=== PATIENT | female | born 1945 | race Caucasian/White ===

== ENCOUNTER 2016-12-02 10:49 | Emergency (ER) | payer MEDICARE, OTHER ==
[2016-12-02] MEDS ORDERED: KETOROLAC TROMETHAMINE 30 MG/ML VIAL ONE (11:21)
[2016-12-02] MEDS ORDERED: ONDANSETRON HCL 4 MG/2 ML VIAL ONE (11:21)
[2016-12-02 11:43] LABS: BLOOD UREA NITROGEN 11 mg/dL (7-17); CALCIUM 9.7 mg/dL (8.4-10.2); CHLORIDE 94 mmol/L (98-107); EST GLOMERULAR FILTRATION RATE > 60 mL/min; GLUCOSE 153 mg/dL (70-100); POTASSIUM 3.5 mmol/L (3.5-5.1); SODIUM 130 mmol/L (137-145)
[2016-12-02 11:47] LABS: BASOPHILS 0.3 % (0.0-2.0); EOSINOPHILS 0.7 % (0.0-6.0); HEMATOCRIT 39.1 % (36.0-48.0); HEMOGLOBIN 13.6 g/dL (12.0-16.0); LYMPHOCYTES# 0.8 X 10^3uL (0.8-3.8); MEAN CORPUS. HGB CONCENTRATION 34.7 g/dL (32.0-36.0); MEAN CORPUSCULAR HEMOGLOBIN 35.1 pg (29.0-35.0); MONOCYTES 2.4 % (2.0-10.0); MONOCYTES# 0.1 X 10^3uL (0.2-1.0); NEUTROPHILS 80.9 % (54.0-75.0); PLATELET COUNT 293 X 10^3uL (130-440); RED BLOOD COUNT 3.87 X 10^6uL (4.20-6.10); RED CELL DISTRIBUTION WIDTH 11.6 % (11.5-14.5)
[2016-12-02 11:49] LABS: LYMPHOCYTES 15.7 % (20.0-40.0)
--- NOTE | 2016-12-02 13:19 | ER PHYSICIAN DOCUMENTATION ---
Physician Documentation [facility] Name:Iva Schreiber Age:71 yrs Sex:Female :1945 Arrival Date:12/02/2016 Time:10:49 Bed1 Private MD: Earnest Adkins Disposition: 12/02/16 13:08 Discharged to Home/Self Care. Impression: Dehydration, Acute Headache. - Condition is Good. - Discharge Instructions: DEHYDRATION (7y-Adult), HEADACHE, Unspecified. - Prescriptions for Zofran 4 mg Oral Tablet - take 1 tablet by ORAL route every 12 hours .; 20 tablet. - Medical Reconciliation form form. - Follow up: Private Physician; When: As needed; Reason: Worsening of condition. - Problem is new. - Symptoms have improved. HPI: 12/02 12:10 This 71 yrs old Female presents to ER via Private Vehicle with complaints of sc Nausea/Vomiting/Diarrhea. 12:10 The patient presents to the emergency department with nausea, with vomiting, 10 times sc since last night, without any complaints of abdominal pain. Onset: The symptom(s)/episode began/occurred last night. Possible causes: travel. Associated signs and symptoms: Pertinent positives: diarrhea, headache. Severity of symptoms: At their worst the symptoms were moderate. Historical: - Allergies: No known drug Allergies; - Home Meds: 1. None - PMHx: None; - PSHx: BUNIONECTOMY; - Tetanus: < 10 years. - Ebola Screening: : Patient negative for fever greater than or equal to 101.5 degrees Fahrenheit, and additional compatible Ebola Virus Disease symptoms. - Immunization history: Flu Vaccine < 1 year. - Social history: Smoking status: Patient states was never smoker of tobacco. ROS: 12:10 Constitutional: Negative for fever, chills, and weight loss. sc Eyes: Negative for injury, pain, redness, and discharge. ENT: Negative for injury, pain, and discharge. Neck: Negative for injury, pain, and swelling. Cardiovascular: Negative for chest pain, palpitations, and edema. Respiratory: Negative for shortness of breath, cough, wheezing, and pleuritic chest pain. Back: Negative for injury and pain. MS/Extremity: Negative for injury and deformity. Skin: Negative for injury, rash, and discoloration. 12:10 Neuro: Negative for headache, weakness, numbness, tingling, and seizure. sc 12:10 Abdomen/GI: Positive for nausea, vomiting, diarrhea. Exam: Constitutional: This is a well developed, well nourished patient who is awake, alert, and in no acute distress. Head/Face: Normocephalic, atraumatic. Eyes: Pupils equal round and reactive to light, extra-ocular motions intact. Lids and lashes normal. Conjunctiva and sclera are non-icteric and not injected. Cornea within normal limits. Periorbital areas with no swelling, redness, or edema. ENT: Nares patent. No nasal discharge, no septal abnormalities noted. Tympanic membranes are normal and external auditory canals are clear. Oropharynx with no redness, swelling, or masses, exudates, or evidence of obstruction, uvula midline. Mucous membranes moist. Neck: Trachea midline, no thyromegaly or masses palpated, and no cervical lymphadenopathy. Supple, full range of motion without nuchal rigidity, or vertebral point tenderness. No meningismus. Cardiovascular: Regular rate and rhythm with a normal S1 and S2. No gallops, murmurs, or rubs. Normal PMI, no JVD. No pulse deficits. Respiratory: Lungs have equal breath sounds bilaterally, clear to auscultation and percussion. No rales, rhonchi or wheezes noted. No increased work of breathing, no retractions or nasal flaring. 12:11 Back: No spinal tenderness. No costovertebral tenderness. Full range of motion. sc 12:11 Constitutional: The patient appears in no acute distress, alert, awake, comfortable. 12:11 ENT: Mouth: Oral mucosa: dry. 12:11 Cardiovascular: Rate: normal, Rhythm: regular. 12:11 Abdomen/GI: Inspection: abdomen appears normal, distension, is not seen, Bowel sounds: normal, Palpation: abdomen is soft and non-tender. 12:11 Skin: Turgor: is poor. Vital Signs: 10:56 BP 162 / 94; Pulse 75; Resp 16; Temp 98.3(O); Pulse Ox 96% on R/A; Weight 48.08 kg (R); arc Height 5 ft. 2 in. (157.48 cm) (R); Pain 0/10; 10:56 Body Mass Index 19.39 (48.08 kg, 157.48 cm) arc MDM: 10:53 Patient medically screened. id 12:11 Differential diagnosis: Nonspecific abd pain, viral gastroenteritis, gastroenteritis. id Data reviewed: vital signs, nurses notes, lab test result(s), and as a result, I will continue to observe the patient, administer IV fluids. Counseling: I had a detailed discussion with the patient and/or guardian regarding: the historical points, exam findings, and any diagnostic results supporting the discharge/admit diagnosis, lab results, the need for outpatient follow up, to return to the emergency department if symptoms worsen or persist or if there are any questions or concerns that arise at home. 12/02 11:44 Order name: BASIC METABOLIC PANEL; Complete Time: 11:50 EDMS 12/02 11:50 Interpretation: Abnormal: SODIUM 130. id 12/02 11:49 Order name: CBC AUTO DIF, MDIF/RMOR IF IND; Complete Time: 11:50 EDID 12/02 11:50 Interpretation: Normal. id 12/02 11:00 Order name: Urine Dip; Complete Time: 12:24 id Dispensed Medications: 11:11 Drug: Toradol 15 mg; Route: IVP; Site: left antecubital; 12:24 Follow up: Response: Pain is decreased 11:11 Drug: Zofran 4 mg; Route: IVP; Infused Over: 2 mins; Site: left antecubital; rh 12:24 Follow up: Response: Nausea is decreased 11:12 Drug: NS 0.9% 1000 ml; Route: IV; Rate: 100 ml/hr; Site: left antecubital; rh 12:15 Follow up: IV Status: Completed infusion; IV Intake: 1000ml Point of Care Testing: Urine Dip: 12:27 pH: 8.0; ; Specific [place]: 1.020; Ketones: Trace; Glucose: Negative; Protein: arc Negative; Leukocytes: Negative; Nitrite: Negative ; Blood: Non Hemolyzed Trace; Bilirubin: Negative ; Urobilinogen: Normal Signatures: Earnest Walden MD MD sc Hofsess, Rachel
--- NOTE | 2016-12-02 13:19 | ER NURSING DOCUMENTATION ---
Nurse's Notes [facility] Name:Iva Schreiber Age:71 yrs Sex:Female :1945 Arrival Date:12/02/2016 Time:10:49 Bed1 Private MD: Diagnosis:Dehydration;Acute Headache Presentation: 12/02 10:51 Acuity: MABEL 3 rh 11:00 Presenting complaint: Patient states: Pt arrived yesterday from [place], she rh developed at headache last night around 0100 and has vomited 8-10 times since, has been nauseated and feels weak. Transition of care: Home. 11:00 Method Of Arrival: Private Vehicle rh Triage Assessment: 11:01 General: Appears in no apparent distress, Behavior is cooperative. Pain: Complains of rh pain in HEADACHE. EENT: Oral mucosa is dry. Neuro: Level of Consciousness is awake, alert, obeys commands, Oriented to person, place, time, event, Reports headache. Cardiovascular: Capillary refill < 3 seconds Chest pain is denied. Respiratory: Airway is patent. GI: Abdomen is non- distended Abd is soft and non tender Reports diarrhea, nausea, vomiting. : No deficits noted. Derm: Skin is intact, is healthy with good turgor, Skin is pink, warm & dry. Historical: - Allergies: No known drug Allergies; - Home Meds: 1. None - PMHx: None; - PSHx: BUNIONECTOMY; - Tetanus: < 10 years. - Ebola Screening: : Patient negative for fever greater than or equal to 101.5 degrees Fahrenheit, and additional compatible Ebola Virus Disease symptoms. - Immunization history: Flu Vaccine < 1 year. - Social history: Smoking status: Patient states was never smoker of tobacco. Screenin:03 Infectious Disease Risk None. Abuse screen: Denies threats or abuse. Denies injuries rh from another. Nutritional screening: No deficits noted. Assessment: 11:03 See Triage Assessment done by same RN. rh Vital Signs: 10:56 BP 162 / 94; Pulse 75; Resp 16; Temp 98.3(O); Pulse Ox 96% on R/A; Weight 48.08 kg (R); arc Height 5 ft. 2 in. (157.48 cm) (R); Pain 0/10; 10:56 Body Mass Index 19.39 (48.08 kg, 157.48 cm) [facility] ED Course: 10:50 Patient arrived in ED. jt 10:51 Ewa Worley is Primary Nurse. rh 10:51 Triage completed. rh 10:53 Earnest Walden MD is Attending Physician. nm 11:00 Notified ED Physician of patient's arrival and chief complaint. Dr. Walden notified. rh 11:03 Valuables Remains with patient Patient has correct armband on for positive rh identification. Placed in gown. Bed in low position. Call light in reach. Side rails up X 1. 11:11 Inserted peripheral IV: 20 gauge in left antecubital area and blood collected. arc Administered Medications: 11:11 Drug: Toradol 15 mg; Route: IVP; Site: left antecubital; rh 12:24 Follow up: Response: Pain is decreased 11:11 Drug: Zofran 4 mg; Route: IVP; Infused Over: 2 mins; Site: left antecubital; rh 12:24 Follow up: Response: Nausea is decreased 11:12 Drug: NS 0.9% 1000 ml; Route: IV; Rate: 100 ml/hr; Site: left antecubital; rh 12:15 Follow up: IV Status: Completed infusion; IV Intake: 1000ml rh Point of Care Testing: Urine Dip: 12:27 pH: 8.0; ; Specific [place]: 1.020; Ketones: Trace; Glucose: Negative; Protein: arc Negative; Leukocytes: Negative; Nitrite: Negative ; Blood: Non Hemolyzed Trace; Bilirubin: Negative ; Urobilinogen: Normal Intake: 12:15 IV: 1000ml; Total: 1000ml. Outcome: 13:08 Discharge ordered by . nm 13:17 Discharged to home ambulatory, with family, with significant other. rh 13:17 Condition: improved 13:17 Discharge Assessment: Patient awake, alert and oriented x 3. No cognitive and/or functional deficits noted. Patient verbalized understanding of disposition instructions. 13:17 Discharge instructions given to patient, Instructed on discharge instructions, follow up and referral plans. medication usage, Demonstrated understanding of instructions, medications, Prescriptions given X 1. 13:17 IV D/Tre 13:18 Patient left the ED. rh 12/03 10:40 Discharge F/U Call: Unable to reach: no answer lp Signatures: Anne Pérez RN RN Earnest Colon MD MD sc Chew, Amelia, Ewa Stiles Joanne jt
== END 2016-12-02 13:19 | disposition home or self-care (01) ==
LOC: ER 10:49
DX: E86.0 Dehydration (principal); R51 Headache; R11.2 Nausea with vomiting, unspecified; R19.7 Diarrhea, unspecified
CPT/HCPCS: 80048; 85025; 96361; 96374; 96375; 99283; 99284; J1885; J2405